=== PATIENT | female | born 1995 | race Caucasian/White ===

== ENCOUNTER 2017-09-04 17:27 | Emergency (ER) | payer SELFPAY ==
[~2017-09-04] VITALS: Ht 152.4 cm; Wt 47.0 kg
[2017-09-04 17:30] VITALS: Ht 152.4 cm; Wt 47.0 kg
[2017-09-04] MEDS ORDERED: LIDOCAINE 2% (MDV) 20 ML INJ INJ ONE (19:30)
[2017-09-04] MEDS ORDERED: AZITHROMYCIN 250 MG TAB PO ONE (19:30)
[2017-09-04] MEDS ORDERED: CEFTRIAXONE 250 MG INJ IM ONE (19:30)
[2017-09-04] MEDS ORDERED: morphine 4 MG/ML VIAL IM STA (19:37)
[2017-09-04 19:47] LABS: ADD UMIC YES; UR ASCORBIC ACID NEGATIVE (NEGATIVE); UR BACTERIA MANY /HPF (NONE SEEN); UR BILIRUBIN (Dip) NEGATIVE (NEGATIVE); UR BLOOD (Dip) 2+ mg/dL (NEGATIVE); UR CLARITY CLOUDY (CLEAR); UR COLOR AMBER (YELLOW); UR GLUCOSE (Dip) NEGATIVE (NEGATIVE); UR KETONES (Dip) NEGATIVE (NEGATIVE); UR LEUKOCYTE ESTERASE (Dip) 2+ Leu/ul (NEGATIVE); UR MUCUS MANY /HPF (NONE SEEN); UR NITRITE (Dip) NEGATIVE (NEGATIVE); UR RBC 13 /HPF (0-5); UR SQUAMOUS EPITHELIAL CELL FEW /HPF (FEW); UR TOTAL PROTEIN (Dip) 2+ mg/dl (NEGATIVE); UR TRANSITIONAL EPI CELL FEW /HPF (NONE SEEN); UR UROBILINOGEN (Dip) 1+ mg/dL (NEGATIVE)
[2017-09-04] MEDS ORDERED: ACETAMINOPHEN 325 MG TAB PO ONE (20:30)
[2017-09-04] MEDS ORDERED: DOXY100C PO (20:47)
[2017-09-04] MEDS ORDERED: ACYC800T57 PO (20:48)
[2017-09-04] MEDS ORDERED: TYL500 PO (20:48)
[2017-09-04] MEDS ORDERED: METR500T PO (20:48)
[2017-09-04 21:01] VITALS: BP 125/68; PULSE 71; RESP 18
--- NOTE | 2017-09-04 21:26 | ERD ---
ER Documentation Chief Complaint Date/Time DATE: 09/04/17 TIME: 21:23 Chief Complaint pelvic pain HPI This is a 22-year-old female presents to the ER complaining no discharge, sores to the vagina and painful and swollen lymph nodes near her vagina. Patient also states that she put a makeup sponge into her vagina and she was not able to get it out. Patient states that she had sexual intercourse with a hailey she "hooked up with" last week, she states she was wearing a condom, and she do not know what happened. Patient also had sexual intercourse yesterday. Patient developed these symptoms about 4 days ago and she has had fevers and has generally been feeling sick. Denies any urinary frequency however does admit to dysuria. Patient denies any pelvic pain. ROS 12 point review of systems was done, all negative except per HPI. Medications Home Meds Active Scripts Acetaminophen* (Tylenol*) 500 Mg Tab, 500 MG PO Q4H Y for MILD PAIN LEVEL 1-3 for 7 Days, TAB Prov:SUBHASH STANLEY C 09/04/17 Acyclovir* (Zovirax*) 800 Mg Tablet, 800 MG PO 5 TIMES DAILY for 7 Days, TAB Prov:LIZETH,SUBHASH C 09/04/17 Metronidazole* (Flagyl*) 500 Mg Tablet, 500 MG PO TID for 7 Days, TAB Prov:LIZETH,SUBHASH C 09/04/17 Doxycycline* (Vibramycin*) 100 Mg Capsule, 100 MG PO BID for 7 Days, EA Prov:MAURICIO STANLEYNA C 09/04/17 PMhx/Soc Medical and Surgical Hx: pt denies Medical Hx, pt denies Surgical Hx Hx Alcohol Use: No Hx Substance Use: No Hx Tobacco Use: No Smoking Status: Never smoker Physical Exam Vitals Vital Signs Date Time Temp Pulse Resp B/P Pulse Ox O2 Delivery O2 Flow Rate FiO2 09/04/17 21:01 71 18 125/68 98 Room Air 09/04/17 17:30 100.4 99 18 127/67 99 Physical Exam GENERAL: The patient is well developed and appropriate for usual state of health , in no apparent distress. HEENT: Atraumatic. CHEST: Clear to auscultation bilaterally. There are no rales, wheezes or rhonchi. HEART: Regular rate and rhythm. No murmurs, clicks, rubs or gallops. ABDOMEN: Soft, nontender and nondistended. Good bowel sounds. No rebound or guarding. No gross peritonitis. No gross organomegaly or masses. No Garcia sign or McBurney point tenderness. BACK: No midline or flank tenderness. no cva tenderness PELVIC: Patient has vesicular lesion to the labia majora, labia minora and inner thighs. patient is currently menstruation, unable to do perform Digital exam 2/2 to pain. one makeup sponge as seen in the vaginal canal and removed. + inguinal lymphadenopathy NEURO: Alert and oriented. Cranial nerves II through XII are intact. SKIN: There is no apparent rash or petechia. The skin is warm and dry. there is no skin erythema Results 24 hrs Laboratory Tests Test 09/04/17 19:20 Urine Color DALI Urine Clarity CLOUDY Urine pH 6.0 Urine Specific [place] 1.020 Urine Ketones NEGATIVEmg/dL Urine Nitrite NEGATIVEmg/dL Urine Bilirubin NEGATIVEmg/dL Urine Urobilinogen 1+mg/dL Urine Leukocyte Esterase 2+Donnell/ul Urine Microscopic RBC 13/HPF Urine Microscopic WBC 115/HPF Urine Squamous Epithelial Cells FEW/HPF Urine Transitional Epithelial Cells FEW/HPF Urine Bacteria MANY/HPF Urine Mucus MANY/HPF Urine Hemoglobin 2+mg/dL Urine Glucose NEGATIVEmg/dL Urine Total Protein 2+mg/dl Current Medications Medications (Trade) Dose Ordered Sig/Arlen Route PRN Reason Start Time Stop Time Status Last Admin Dose Admin Ceftriaxone Sodium (Rocephin) 250 mg ONCE ONCE IM 09/04/17 19:30 09/04/17 19:31 DC 09/04/17 19:50 Lidocaine (Xylocaine 2% (Mdv) 20 ml) 20 ml ONCE ONCE INJ 09/04/17 19:30 09/04/17 19:31 DC 09/04/17 19:50 Azithromycin (Zithromax) 1,000 mg ONCE ONCE PO 09/04/17 19:30 09/04/17 19:31 DC 09/04/17 19:50 Morphine Sulfate (morphine) 4 mg ONCE STAT IM 09/04/17 19:37 09/04/17 19:38 DC 09/04/17 19:50 Acetaminophen (Tylenol Tab) 650 mg ONCE ONCE PO 09/04/17 20:30 09/04/17 20:31 DC 09/04/17 20:51 Procedures/MDM Patient was stable throughout ER course she was given Rocephin and azithromycin prophylactically for chlamydia and gonorrhea. Her urine was sent to the lab for testing. Foreign body was removed successfully. 22-year-old female that presents to the ER with vaginal discharge, vaginal sores and a foreign body in her vagina. Examination patient does appear to be having a herpes outbreak, fever and analysis likely due to this as this is likely his first outbreak. Patient did have a urinary tract infection. Was very tender to the vagina, likely due to herpes outbreak, I am unable to perform a proper pelvic exam secondary to patient's pain, however she will be treated empirically for pelvic inflammatory disease with doxycycline and metronidazole. Suspicion for toxic shock syndrome is low. Patient does not have a red sunburn like rash, and her vital signs are normal with no signs of hypotension. Patient needs to follow-up with her primary care doctor within 1- 2 days return to ER sooner if symptoms worsen. My medical decision making shared with the patient she understands and agrees with plan. Departure Diagnosis: Primary Impression: Herpes Additional Impression: UTI (urinary tract infection) Condition: Stable Patient Instructions: Herpes: Caring for Sores Additional Instructions: Call your primary care doctor TOMORROW for an appointment during the next 1-2 days.See the doctor sooner or return here if your condition worsens before your appointment time. SUBHASH STANLEY Sep 04, 2017 21:26
== END 2017-09-04 21:03 | disposition home or self-care (01) ==
LOC: FTE 17:27
DX: B00.9 Herpesviral infection, unspecified (principal); N39.0 Urinary tract infection, site not specified
CPT/HCPCS: 81001; 87591; 96372; 99284; J0696; J2270